=== PATIENT | female | born 1960 | race Caucasian/White ===

== ENCOUNTER → 2021-08-15 09:31 | Outpatient (CLI) | payer MEDICARE, SELFPAY ==
[2021-08-15 18:29] LABS: Basophils # 0.2 K/mm3 (0-0.2); Basophils % 1.8 % (0.1-2.0); Eosinophils # 0.2 K/mm3 (0.0-0.4); Hemoglobin 14.5 g/dL (12.2-16.2); Lymphocytes # 2.8 K/mm3 (0.7-4.5); Lymphocytes % 31.5 % (10-50); Mean Corpuscular HGB Conc 32.2 g/dL (31.8-35.4); Mean Corpuscular Volume 93.2 fl (81-99); Mean Platelet Volume 10.8 fl (7.4-10.4); Monocytes # 0.5 K/mm3 (0.1-1.0); Neutrophils # 5.2 K/mm3 (1.8-7.8); Neutrophils % 58.7 % (37.0-80.0); Platelet Count 363 K/mm3 (142-424); Red Blood Count 4.83 M/mm3 (4.20-5.40); Red Cell Distribution Width 13.6 % (11.5-17.5); White Blood Count 8.8 K/mm3 (4.8-10.8)
[2021-08-15 19:11] LABS: Anion Gap 10.4 mEq/L (5-15); Blood Urea Nitrogen 12 mg/dl (7-17); Calcium 8.9 mg/dl (8.4-10.2); Carbon Dioxide 26 mmol/L (22.0-30.0); Chloride 104 mmol/L (98-107); Estimated Glomerular Filt Rate 102 ml/min (>60); GFR (African American) 123 ML/MIN (>60); Glucose 92 mg/dl (74-100); HDL Cholesterol 53 mg/dl (40-60); Potassium 4.4 mmoL/L (3.5-5.1); Sodium 136 mmol/L (136-145); Triglycerides 292 mg/dl (30-150); VLDL Cholesterol 58 mg/dL (0-40)
[2021-08-15 19:22] LABS: Direct LDL Cholesterol 202.51 mg/dL (100-129)
[2021-08-15 19:32] LABS: Chol/HDL Ratio 6.3 (1-3.5); Cholesterol 332 mg/dl (140-200)
[2021-08-15 19:43] LABS: Thyroid Stimulating Hormone 2.79 uIU/mL (0.465-4.68)
== END ==
PROVIDERS: Visit Provider Emergency Medicine
DX: I10 Essential (primary) hypertension (principal); Z79.899 Other long term (current) drug therapy
CPT/HCPCS: 80048; 80061; 84439; 84443; 85025

== ENCOUNTER → 2021-08-21 12:34 | Outpatient (CLI) | payer MEDICARE, SELFPAY ==
--- NOTE | 2021-08-21 12:36 | CA_ITS ---
FINAL REPORT CLINICAL HISTORY: bruits, ringing in ears, HTN, smoker FINDINGS: An ultrasound of the carotid arteries was performed. Duplex Doppler evaluation with spectral analysis was performed. The peak systolic velocity of the right common carotid artery is 80 cm/s. The peak systolic velocity of the right internal carotid artery is 71 cm/s and end diastolic velocity 30 cm/s. A small amount of plaque is present. The right external carotid artery is patent. The right vertebral artery is patent with antegrade flow. ICA/CCA ratio: 1.3 The peak systolic velocity of the left common carotid artery is 73 cm/s. The peak systolic velocity of the left internal carotid artery is 95 cm/s and end diastolic velocity 35 cm/s. A small amount of plaque is present. The left external carotid artery is patent. The left vertebral artery is patent with antegrade flow. ICA/CCA ratio: 1.4 Less than 50% bilateral carotid stenoses. Bilateral patent vertebral arteries with antegrade flow. Reviewed, Interpreted and Dictated by Emmanuel Cheema MD Transcribed by Marco Fu Authenticated by Emmanuel Cheema MD on 08/21/2021 02:28:22 PM [facility]
== END ==
PROVIDERS: PCP Emergency Medicine; Visit Provider Emergency Medicine
DX: R09.89 Other specified symptoms and signs involving the circulatory and respiratory systems (principal)
CPT/HCPCS: 93880

== ENCOUNTER → 2023-03-13 06:09 | Outpatient (CLI) | payer MEDICARE, SELFPAY ==
--- NOTE | 2023-03-13 | CA_ITS ---
APPROVED REPORT Exam: Pharmacologic Technologist: Sridevi Coello, Ht: 5 ft 2 in Wt: 171 lbs BSA: 1.79 m2 HR: 69 bpm BP: 146/80 mmHg Rhythm: NSR Medical History Medications: Amlodipine,,,,, Lisinopril,,,,, Atorvastatin,,,,, Albuterol,,,,, Protonix,,,,, CetIRIZINE,,,,, Trelegy Ellipta,,,,, Stress Test Details Test: LEXISCAN Reason for pharmacologic stress test: physical limitation. HR Resting HR: 75 bpm Max Heart Rate (APMHR): 158 bpm Max HR Achieved: 118 bpm Target HR (85% APMHR): 134 bpm % of APMHR: 75 Recovery HR: 80 bpm BP Resting BP: 146.0/80.0 mmHg Max BP: 146.0/80.0 mmHg Recovery BP: 137.0/75.0 mmHg ECG Resting ECG: NSR, low voltage QRS, anterior T wave abnormalities Stress ECG: No significant ST changes Arrhythmia: None Clinical Exercise duration: 04:00 min Highest Stage Achieved: Exercise capacity: 1.0 METs Stress ECG Conclusion Symptoms: Nausea, mild SOA, mild head discomfort. No CP. Arrhythmias/Ectopy: Occasional PVC. ST-T Changes: No significant ST changes Conclusion: Baseline ECG demonstrates T wave abnormalities in anterior leads. No significant ST changes were noted following pharmacological stress testing. Myoview images reported separately. Test Summary REST . . . . . . . Resting REST 04:15 . . 75 . 146/ 80 . . Stage 1 01:00 . . 84 . . . . Stage 2 01:00 . . 86 . 125/ 71 . . Stage 3 01:00 . . 84 . 128/ 71 . . Stage 4 01:00 . . 82 . 121/ 76 . Stop exercise at 04:00 RECOVERY 01:00 . . 79 . 135/ 77 . . RECOVERY 02:00 . . 80 . 135/ 77 . . RECOVERY 03:00 . . 80 . 142/ 73 . . RECOVERY 03:16 . . 80 . 137/ 75 . . Electronically signed by : Olivia Bingham MD 03/23/2023 21:48:44
--- NOTE | 2023-03-13 06:12 | NM_ITS ---
APPROVED REPORT Exam: Nuclear Stress Test Indication: soa..fatigue..high bp..high cholesterol..family hx..tobacco use Patient Location: Outpatient Stress Tech: Sridevi Patel MS Tech:Luh Han ARRT RT(R)(N) Ht: 5 ft 2 in Wt: 170 lbs Bra Size: 34b HR: 75 bpm BP: 146/80 mmHg BSA: 1.78 m2 TID: 1.02 BMI: 31.0 History: soa..fatigue..high bp..high cholesterol..family hx..tobacco use Procedure: Patient received 0.4 mg of intravenous Lexiscan, resting heart rate 75 bpm, resting blood pressure 146/80 mmHg, with Lexiscan maximum heart rate achieved was 118 bpm which is 85 % of the maximum predicted heart rate and blood pressure was 146/80 mmHg. With Lexiscan, patient denied any complaint of chest pain. Cardiac Stress and Resting SPECT Images: Cardiac Stress and Resting SPECT images were obtained using technetium 99m Myoview 30.3 mCi stress and 10.99 mCi at rest. Resting and stress imaging in supine and prone positions demonstrate no evidence of fixed or reversible perfusion defects. Gated imaging demonstrates normal global and regional LV systolic function. LVEF is calculated at 74%. Conclusion: No evidence of fixed or reversible perfusion defects. Gated imaging demonstrates normal global and regional LV systolic function. LVEF is calculated at 74%. Electronically signed by : Olivia Bingham MD 03/23/2023 21:50:05
--- NOTE | 2023-03-13 08:03 | CA_ITS ---
APPROVED REPORT EXAM: Comprehensive 2D, Doppler, and color-flow Echocardiogram Explosive Man: Marlyn Beal RDCS Ht: 5 ft 2 in Wt: 171lbs BSA: 1.79 BP: 132/77 mmHg Indications: ABN EKG,SOA 2D Dimensions LVOT 1.72 cm (M/F) 1.5-2.5 M-Mode Dimensions RVDd 1.98 cm (0.9-2.6) LA Diam 3.56 cm (1.9-4.0) LVDd 4.96 cm (3.5-5.7) Ao Diam 2.89 cm (2.0-3.7) LVDs 3.69 cm (3.5-5.7) IVSd 0.84 cm (0.6-1.1) PWd 0.64 cm (0.6-1.1) EF (Teich) 50.20% FS 25.60% EDV (Teich) 116.10 mL ESV (Teich) 57.80 mL LV Diastology E Decel Time 193.00 (160-240 msec) E/A Ratio 1.0 MED E' 6.30 (< 7 cm/sec) E'/MED E' Ratio 12.46 (>14) LAT E' 7.80 (<10 cm/sec) E/LAT E' Ratio 10.06 (>14) Mitral Valve MV E Max Yan. 79.00 (40-130 cm/s) MV A Velocity 80.00 (40-130 cm/s) E/A Ratio 0.98 MV Decel. Time 193.00 (160-240 ms) MV PHT 57.00 ms Left Ventricle The left ventricle is normal size. The left ventricular systolic function is normal. The left ventricular ejection fraction is within the normal range. There is normal left ventricular wall thickness. There is normal LV segmental wall motion. The left ventricular diastolic function is normal. LVEF is 55%. Right Ventricle The right ventricle is normal size. The right ventricular systolic function is normal. Atria The left atrium size is normal. The right atrium size is normal. There is no Doppler evidence of interatrial shunt. Aortic Valve The aortic valve opens well. There is no aortic valvular stenosis. No aortic regurgitation is present. Mitral Valve The mitral valve is normal in structure. No evidence of mitral valve stenosis. There is no mitral valve regurgitation noted. Tricuspid Valve The tricuspid valve leaflets are thin and pliable. Trace tricuspid regurgitation. There is insufficient TR jet to estimate RVSP. Pulmonic Valve The pulmonary valve is normal in structure. Trace pulmonic regurgitation. Great Vessels The aortic root is normal in size. The ascending aorta is normal in size. IVC is normal in size and collapses >50% with inspiration. Pericardium There is no pericardial effusion. Other Information Study Quality: Fair Conclusion Normal biventricular systolic function. No significant valvular stenosis or regurgitation. Electronically signed by : Olivia Bingham MD 03/23/2023 21:23:39
== END ==
LOC: RAD 06:10
PROVIDERS: PCP Emergency Medicine; Visit Provider Nurse Practitioner
DX: R06.00 Dyspnea, unspecified (principal); I10 Essential (primary) hypertension; R10.9 Unspecified abdominal pain; R14.0 Abdominal distension (gaseous); R94.31 Abnormal electrocardiogram [ECG] [EKG]; Z82.49 Family history of ischemic heart disease and other diseases of the circulatory system; E66.9 Obesity, unspecified; Z68.31 Body mass index [BMI] 31.0-31.9, adult; Z72.0 Tobacco use
CPT/HCPCS: 78452; 93017; 93018; 93306; A9502; J2785

== ENCOUNTER → 2023-04-01 12:00 | Outpatient (CLI) | payer MEDICARE, SELFPAY | PROVIDERS: PCP Student in an Organized Health Care Education/Training Program; Visit Provider Student in an Organized Health Care Education/Training Program | DX: R05.9 Cough, unspecified (principal) | CPT/HCPCS: 87635 ==

== ENCOUNTER → 2023-04-17 08:19 | Outpatient (CLI) | payer MEDICARE, SELFPAY ==
[2023-04-17 20:08] LABS: Creatinine,Urine Random 27 mg/dL (Not Estab.)
== END ==
PROVIDERS: PCP Internal Medicine; Visit Provider Internal Medicine
DX: Z83.3 Family history of diabetes mellitus (principal); J44.9 Chronic obstructive pulmonary disease, unspecified; I10 Essential (primary) hypertension; Z72.0 Tobacco use
CPT/HCPCS: 82043; 82570

== ENCOUNTER 2023-09-26 11:46 | Outpatient (CLI) | payer MEDICARE, SELFPAY ==
[2023-09-26 18:23] LABS: Basophils # 0.2 K/mm3 (0-0.2); Basophils % 1.8 % (0.1-2.0); Eosinophils # 0.2 K/mm3 (0.0-0.4); Hemoglobin 14.1 g/dL (12.2-16.2); Lymphocytes # 3.8 K/mm3 (0.7-4.5); Lymphocytes % 34.4 % (10-50); Mean Corpuscular HGB Conc 32.7 g/dL (31.8-35.4); Mean Corpuscular Hemoglobin 30.9 pg (27.0-31.2); Mean Corpuscular Volume 94.5 fl (81-99); Monocytes # 0.6 K/mm3 (0.1-1.0); Monocytes % 5.3 % (1.7-9.3); Neutrophils # 6.2 K/mm3 (1.8-7.8); Neutrophils % 56.6 % (37.0-80.0); Platelet Count 303 K/mm3 (142-424); Red Blood Count 4.55 M/mm3 (4.20-5.40); Red Cell Distribution Width 13.5 % (11.5-17.5); White Blood Count 10.9 K/mm3 (4.8-10.8)
[2023-09-26 19:45] LABS: Alanine Aminotransferase 52 U/L (12-78); Albumin Level 4.1 g/dl (3.5-5.0); Albumin/Globulin Ratio 1.4 (1.1-1.8); Alkaline Phosphatase 182 U/L (38-126); Anion Gap 14.9 mEq/L (5-15); Aspartate Amino Transferase 36 U/L (14-36); Bilirubin,Total 0.4 mg/dl (0.2-1.3); Blood Urea Nitrogen 15 mg/dl (7-17); Calcium 9.5 mg/dl (8.4-10.2); Carbon Dioxide 25 mmol/L (22.0-30.0); Chloride 104 mmol/L (98-107); Chol/HDL Ratio 3.3 (1-3.5); Cholesterol 205 mg/dl (140-200); Estimated Glomerular Filt Rate 85 ml/min (>60); GFR (African American) 102 ML/MIN (>60); Globulin 2.9 g/dL (1.3-3.2); Glucose 108 mg/dl (74-100); HDL Cholesterol 62 mg/dl (40-60); Potassium 3.9 mmoL/L (3.5-5.1); Sodium 140 mmol/L (136-145); Triglycerides 130 mg/dl (30-150); VLDL Cholesterol 26 mg/dL (0-40)
[2023-09-26 19:56] LABS: Direct LDL Cholesterol 116.24 mg/dL (100-129)
[2023-09-26 20:17] LABS: Thyroid Stimulating Hormone 2.38 uIU/mL (0.465-4.68)
[2023-09-30 11:05] LABS: Gamma Glutamyl Transpeptidase 113 U/L (12-43)
== END 2023-09-26 23:59 | disposition home or self-care (01) ==
LOC: LAB.DROPOF 09-27 11:46
PROVIDERS: PCP Family Medicine; Visit Provider Family Medicine
DX: E78.5 Hyperlipidemia, unspecified (principal); J44.9 Chronic obstructive pulmonary disease, unspecified; K74.60 Unspecified cirrhosis of liver; Z79.899 Other long term (current) drug therapy
CPT/HCPCS: 80053; 80061; 82977; 84443; 85025

== ENCOUNTER 2023-10-27 07:11 | Outpatient (CLI) | payer MEDICARE, SELFPAY ==
--- NOTE | 2023-10-27 07:11 | US_ITS ---
FINAL REPORT CLINICAL HISTORY: hepatomegaly COMPARISON: None FINDINGS: Sonographic images of the right upper quadrant were obtained. The pancreas is unremarkable in appearance Hepatomegaly is present, with the liver measuring 19 cm in the craniocaudal dimension. There is diffuse fatty infiltration of the liver. There are 2 echogenic nonshadowing foci in the gallbladder, that may represent polyps versus tumefactive sludge. There is no evidence of biliary ductal dilatation.The common duct measures 3 mm. Limited images of the right kidney are unremarkable. IMPRESSION: Hepatomegaly, with diffuse fatty infiltration of the liver. 2 echogenic nonshadowing foci in the gallbladder, polyps versus tumefactive sludge. Reviewed, Interpreted and Dictated by Erik Egan III, MD Transcribed by Keira Jeffery Authenticated and [facility]
--- NOTE | 2023-10-27 08:08 | MM_ITS ---
PROCEDURE INFORMATION: Exam: Bilateral Screening 3D Mammography Exam date and time: 10/27/2023 8:13 AM Age: 63 years old Clinical indication: Screening examination TECHNIQUE: Imaging protocol: Bilateral Screening tomosynthesis and 2D mammography including computer-aided detection (CAD) when performed. COMPARISON: 1. MG Screening-Bilateral Mammography 10/22/2017 12:11 PM 2. MG MAMMO SCREENING DIGITAL BILAT 11/08/2014 5:47 PM FINDINGS: MAMMOGRAPHY: Breast composition: The breasts are heterogeneously dense, which may obscure small masses. Mass: None. Architectural distortion: None. Calcifications: No suspicious calcifications. Asymmetric density: None. Skin thickening: None. Axillary adenopathy: None. IMPRESSION: No mammographic evidence of malignancy. Annual screening is recommended unless otherwise clinically indicated. ASSESSMENT: BI-RADS Category 1: Negative
== END 2023-10-27 23:59 | disposition home or self-care (01) ==
LOC: RAD 07:11
PROVIDERS: PCP Family Medicine; Visit Provider Family Medicine
DX: Z12.31 Encounter for screening mammogram for malignant neoplasm of breast (principal); R16.0 Hepatomegaly, not elsewhere classified
CPT/HCPCS: 76705; 77063; 77067

== ENCOUNTER 2024-01-06 09:16 | Outpatient (CLI) | payer MEDICARE, SELFPAY ==
[2024-01-06 19:12] LABS: Alanine Aminotransferase 105 U/L (12-78); Albumin Level 3.4 g/dl (3.5-5.0); Albumin/Globulin Ratio 1.3 (1.1-1.8); Alkaline Phosphatase 215 U/L (38-126); Anion Gap 11.6 mEq/L (5-15); Aspartate Amino Transferase 66 U/L (14-36); Bilirubin,Total 0.3 mg/dl (0.2-1.3); Blood Urea Nitrogen 16 mg/dl (7-17); Calcium 8.9 mg/dl (8.4-10.2); Carbon Dioxide 27 mmol/L (22.0-30.0); Chloride 103 mmol/L (98-107); Cholesterol 210 mg/dl (140-200); Estimated Glomerular Filt Rate 101 ml/min (>60); GFR (African American) 122 ML/MIN (>60); Globulin 2.7 g/dL (1.3-3.2); HDL Cholesterol 53 mg/dl (40-60); Potassium 4.6 mmoL/L (3.5-5.1); Sodium 137 mmol/L (136-145); Total Protein,Serum 6.1 g/dl (6.3-8.2); Triglycerides 365 mg/dl (30-150); VLDL Cholesterol 73 mg/dL (0-40)
[2024-01-06 19:17] LABS: Glucose 417 mg/dl (74-100)
[2024-01-06 19:23] LABS: Direct LDL Cholesterol 101.81 mg/dL (100-129)
[2024-01-08 12:39] LABS: HBsAg Screen Negative (Negative); HCV Ab Non Reactive (Non Reactive); Hep A Ab, IGM Negative (Negative); Hep B Core Ab, IgM Negative (Negative)
== END 2024-01-06 23:59 | disposition home or self-care (01) ==
LOC: LAB.DROPOF 01-08 09:16
PROVIDERS: PCP Family Medicine; Visit Provider Family Medicine
DX: E78.5 Hyperlipidemia, unspecified (principal); E78.2 Mixed hyperlipidemia; I10 Essential (primary) hypertension; R79.89 Other specified abnormal findings of blood chemistry; Z11.59 Encounter for screening for other viral diseases; R16.0 Hepatomegaly, not elsewhere classified
CPT/HCPCS: 80053; 80061; 80074; 87522

== ENCOUNTER 2024-02-23 10:27 | Outpatient (CLI) | payer MEDICARE, SELFPAY ==
--- NOTE | 2024-02-23 10:29 | CT_ITS ---
PROCEDURE INFORMATION: Exam: CT Abdomen And Pelvis With Contrast Exam date and time: 02/23/2024 11:15 AM Age: 63 years old Clinical indication: Abdominal pain; Additional info: Llq and rlq pain, elevated lfts, polyps in gallbla TECHNIQUE: Imaging protocol: Computed tomography of the abdomen and pelvis with contrast. Radiation optimization: All CT scans at this facility use at least one of these dose optimization techniques: automated exposure control; mA and/or kV adjustment per patient size (includes targeted exams where dose is matched to clinical indication); or iterative reconstruction. Contrast material: ISOVUE; Contrast volume: 75 ml; Contrast route: IV; COMPARISON: US ABDOMEN LIMITED 10/27/2023 7:25 AM FINDINGS: Lungs: There is a 5 mm noncalcified nodule in the right lower lobe. For patients at low risk (minimal or absent history of smoking and of other known risk factors), no routine follow-up is indicated. For patients at high risk (history of smoking or of other known risk factors), consider optional CT Chest at 12 months. (Reference: Prateek) Liver: Hepatic steatosis. No focal liver lesion identified. Gallbladder and biliary ducts: Normal. No calcified stones. No ductal dilation. Pancreas: Normal. No ductal dilation. Spleen: Multiple old small calcified splenic granulomas. Adrenal glands: Normal. No mass. Kidneys and ureters: Normal. No hydronephrosis. Stomach and bowel: The small bowel loops are not thickened and are nondilated. There is colonic diverticulosis but no evidence of diverticulitis. Appendix: The appendix is not identified, but there are no inflammatory changes in its expected region. Intraperitoneal space: Unremarkable. No free air. No significant fluid collection. Vasculature: Unremarkable. No abdominal aortic aneurysm. Lymph nodes: Unremarkable. No enlarged lymph nodes. Urinary bladder: Unremarkable as visualized. Reproductive: Unremarkable as visualized. Bones/joints: Unremarkable. No acute fracture. Soft tissues: Unremarkable. IMPRESSION: 1. No CT evidence of acute intra-abdominal pathology. 2. Extensive sigmoid diverticulosis but no evidence of diverticulitis at this time. 3. Hepatic steatosis. 4. 5 mm noncalcified nodule in the right lower lobe with follow-up recommendations as above. REFERENCES: Prateek Rowland, et al. Guidelines for Management of Incidental Pulmonary Nodules Detected on CT Images: From the Fleischner Society 2017. Radiology. 2017;284(1):228-243.
[2024-02-23 11:00] LABS: Blood Urea Nitrogen 11 mg/dl (7-17); Estimated Glomerular Filt Rate 72 ml/min (>60); GFR (African American) 88 ML/MIN (>60)
[2024-02-23] MEDS: IOPAMIDOL-370 (76%);100ML BOTTLE 75 ML IV (11:48)
[2024-02-23] MEDS: SODIUM CHLORIDE 0.9% 10ML SYR (RAD ONLY) 10 ML IV (11:48)
== END 2024-02-23 23:59 | disposition home or self-care (01) ==
LOC: RAD 10:29
PROVIDERS: PCP Family Medicine; Visit Provider Nurse Practitioner Family
DX: K76.0 Fatty (change of) liver, not elsewhere classified (principal); R10.32 Left lower quadrant pain; R74.8 Abnormal levels of other serum enzymes; R14.0 Abdominal distension (gaseous)
CPT/HCPCS: 74177; 82565; 84520; Q9967

== ENCOUNTER 2024-03-23 14:53 | Outpatient (CLI) | payer MEDICARE, SELFPAY ==
--- NOTE | 2024-03-23 14:53 | CT_ITS ---
FINAL REPORT TECHNIQUE: Thin section axial images were obtained through the lungs using a low-dose technique per lung cancer screening protocol. Reconstruction images were obtained using the axial data. Exam was performed using dose reduction technique. CLINICAL HISTORY: 30 lung cancer screening current smoker 1ppd x 30 years COMPARISON: No prior FINDINGS: CTDLvol: 2.90 DLP: Nine 6.38 Current smoker 30 pack year history Lungs: 5 mm right lower lobe nodule seen on image 52. The lungs are otherwise clear. There is mild emphysema. Lymph nodes: No thoracic lymphadenopathy. Mediastinum: Heart size is normal. Pleura/pericardium: No pleural or pericardial effusion. Other: No acute abnormality in the upper abdomen. IMPRESSION: 5 mm right lower lobe nodule. Lung RADS: 2 Recommendation: 12-month follow-up low-dose chest CT Reviewed, Interpreted and Dictated by Krista Beckford MD Transcribed by Alethea Gray Authenticated and [facility]
== END 2024-03-23 23:59 | disposition home or self-care (01) ==
LOC: RAD 14:53
PROVIDERS: PCP Family Medicine; Visit Provider Family Medicine
DX: F17.210 Nicotine dependence, cigarettes, uncomplicated (principal)
CPT/HCPCS: 71271

== ENCOUNTER 2024-04-02 10:10 | Outpatient (CLI) | payer MEDICARE, SELFPAY ==
--- NOTE | 2024-04-02 10:52 | ECG_ITS ---
APPROVED REPORT Exam: Resting ECG HR:68 bpm ECG Measurements Heart Rate 68 AXES AK 165 P 41 QRSd 90 QRS 1 QT 415 T -8 QTc 433 Conclusion SINUS RHYTHM LOW QRS VOLTAGE IN PRECORDIAL LEADS [QRS DEFLECTION < 1.0 mV IN CHEST LEADS] ST DEVIATION AND MODERATE T-WAVE ABNORMALITY, CONSIDER ANTERIOR ISCHEMIA [-0.1+ mV T-WAVE IN V3/V4] ABNORMAL ECG UNCONFIRMED REPORT Electronically signed by : Jeramy Walls MD 04/02/2024 19:30:02
[2024-04-02 11:12] LABS: Chloride 109 mmol/L (98-107); Potassium 3.7 mmoL/L (3.5-5.1); Sodium 141 mmol/L (136-145)
[2024-04-02 11:15] LABS: Blood Urea Nitrogen 13 mg/dl (7-17); Estimated Glomerular Filt Rate 72 ml/min (>60); GFR (African American) 88 ML/MIN (>60)
[2024-04-02 11:16] LABS: Anion Gap 7.7 mEq/L (5-15); Carbon Dioxide 28 mmol/L (22.0-30.0); Glucose 78 mg/dl (74-100)
[2024-04-02 11:18] LABS: Basophils # 0.2 K/mm3 (0-0.2); Basophils % 1.7 % (0.1-2.0); Eosinophils # 0.2 K/mm3 (0.0-0.4); Eosinophils % 2.3 % (0.1-12.0); Hematocrit 40.2 % (37.0-47.0); Hemoglobin 13.5 g/dL (12.2-16.2); Lymphocytes # 3.4 K/mm3 (0.7-4.5); Lymphocytes % 38.2 % (10-50); Mean Corpuscular HGB Conc 33.6 g/dL (31.8-35.4); Mean Corpuscular Hemoglobin 29.6 pg (27.0-31.2); Mean Corpuscular Volume 88.1 fl (81-99); Mean Platelet Volume 9.5 fl (7.4-10.4); Monocytes # 0.5 K/mm3 (0.1-1.0); Monocytes % 6.1 % (1.7-9.3); Neutrophils # 4.6 K/mm3 (1.8-7.8); Neutrophils % 51.7 % (37.0-80.0); Platelet Count 283 K/mm3 (142-424); Red Blood Count 4.56 M/mm3 (4.20-5.40); Red Cell Distribution Width 13.5 % (11.5-17.5); White Blood Count 8.9 K/mm3 (4.8-10.8)
== END 2024-04-02 23:59 | disposition home or self-care (01) ==
LOC: PREOP 10:10
PROVIDERS: PCP Family Medicine; Visit Provider Surgery
DX: Z01.810 Encounter for preprocedural cardiovascular examination (principal); L98.9 Disorder of the skin and subcutaneous tissue, unspecified; R94.31 Abnormal electrocardiogram [ECG] [EKG]
CPT/HCPCS: 80048; 85025; 93005

== ENCOUNTER 2024-04-08 07:31 | Day surgery (SDC) | payer MEDICARE, SELFPAY ==
[2024-04-02 10:39] VITALS: BMI 32.0
[2024-04-08] VITALS (9 sets, daily range): BP systolic 96–148; BP diastolic 42–78; PULSE 70–80; RESP 16–18; TEMP 36.1–36.6; O2SAT 91–95; BMI 32.0
--- NOTE | 2024-04-08 08:00 | EXP.ANES.CKL ---
[facility] Disclaimer: The information contained in this section may have been updated after the patient was seen, as this information can be updated by other users. Medical History Skin lesion scalp Pulmonary nodule Diabetes mellitus, type II 01/06/24- Glucose 417mg/dl, A1c 10.4% 01/09/24 Diabetes Screening for viral disease Plantar wart Abnormal liver function tests Hepatomegaly Screening due Eczema of both external ears Hip pain, left Abnormal electrocardiogram [ECG] [EKG] Abdominal pain Abdominal distention Family history of CHF (congestive heart failure) GÓMEZ (obstructive sleep apnea) Patient states she is using her CPAP on a regular basis. Tobacco use Patient strongly encouraged to quit smoking. She states she will not quit at this time. Obesity (BMI 30-39.9) Hypertension COPD (chronic obstructive pulmonary disease) GERD (gastroesophageal reflux disease) Surgical History No significant past surgical history Family History Other Family history of cancer Family history of heart disease Social History Smoking Status: Current every day smoker tobacco type: cigarettes packs per day: 1 alcohol intake: never substance use type: denies use current occupational status: disabled Travel in the last 8 weeks: None [facility] Anesthesia Checklist Patient Identification Patient Identification: Arm Band and Verbal (Name & ) Structural Data Admitted From: Home Planned Operative Procedure/s: Excision of skin lesion on RT. lateral scalp Consent for Planned Operative Procedure(s) Verified: Yes Verified Documents: Surgical Consent and History and Physical NPO Status Verified Time NPO: 20:00 Chart Verification Results Verified: CBC, BMP and ECG Additional verifications Fingerstick Blood Glucose: 93 Patient : No Anesthesia Reactions: No Cardiovascular Assessment Heart Sounds: S1 & S2 Pulse Rhythm: Irregular Peripheral Edema: No Airway Assessment Mallampati Score:: Class II C-Spine Mobility Assessed: Yes (FROM demonstrated) TMJ Mobility Assessed: Yes Dentition: Dentures-good fit (Upper & lower in place. will remove prior to induction) Neurological Assessment Level of Consciousness: Awake, Alert, Appropriate and Follows Commands Hx Seizures: No Numbness or tingling in extremities: No Anesthesia Plan Anesthesia Risk discussed: Yes Anesthesia Plan: Verified ASA Class: III Anesthesia Type: General
[2024-04-08] MEDS: 0.9 % SODIUM CHLORIDE 1000ML 1,000 ML 25 ML IV (08:12)
[2024-04-08 09:07] LABS: POC Glucose,Bedside 93 (70-110)
[2024-04-08] MEDS: LIDOCAINE 1% 20ML MDV 20 ML (09:07)
[2024-04-08] MEDS: CLINDAMYCIN PHOSPHATE/D5W 900 MG/50 ML PIGGYBACK 100 MG IV (09:07)
--- NOTE | 2024-04-08 09:42 | EXP.OP.NOTE ---
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 General anesthesia with laryngeal mask airway was achieved. Her right lateral scalp was prepped and draped in a sterile fashion. After infiltration with local anesthetic an elliptical incision was made around the lesion. The deep subcutaneous tissue was sharply dissected. The lesion was excised in toto and passed off for pathologic evaluation. Electrocautery was utilized to achieve hemostasis. Skin was then reapproximated with interrupted 4-0 nylon. Dressings were applied and the patient was transferred to recovery in stable condition after removal of her laryngeal mask airway. Condition: stable Disposition: PACU Specimens:: Right lateral scalp skin lesion Complications:: No immediate
--- NOTE | 2024-04-08 10:01 | EXP.ANES.I ---
[facility] Anesthesia Record Part I Anesthesia Record I Intake, IV Amount: 900 Hydration: Adequate Estimated blood loss (mL): 2 Urine output (mL): 0 Blood Products used (#): none Blood Pressure: 113/67 SaO2: 91 Pulse Rate: 76 Airway Patency: Patent Respiratory Rate: 16 Temperature: 97.3 F Patient is:: Drowsy and Stable Stable to PACU at:: 09:50
--- NOTE | 2024-04-12 09:16 | P.PNANES_ITS ---
[facility] Anesthesia Record Part II Anesthesia Record Part II Discharge Time: 10:20 Destination: Surgical Day Care (OP Surgery) PACU nurse assessment reviewed?: Yes Patient Condition:: Good Anesthesia Complications:: None Swallowing reflex intact?: Yes Airway Patency: Patent Cyanosis?: No Blood Pressure: 108/60 SaO2: 95 Respiratory Rate: 16 Pulse Rate: 72 Temperature: 97 F Mental Status: Alert & Oriented Pain level:: 0 Nausea and/or vomitting:: None Intake, IV Amount: 0 Hydration: Adequate
[2024-04-12 09:17] VITALS: BP 108/60; PULSE 72; RESP 16; TEMP 36.1; O2SAT 95
== END 2024-04-08 11:07 | disposition home or self-care (01) ==
PROVIDERS: PCP Family Medicine; Visit Provider Surgery
PROC: (CPT 21011; principal; 2024-04-08 09:15)
DX: D23.4 Other benign neoplasm of skin of scalp and neck (principal); E11.8 Type 2 diabetes mellitus with unspecified complications; Z79.85 Long-term (current) use of injectable non-insulin antidiabetic drugs
CPT/HCPCS: 21011; 82962; 88305; 96374; J0736; J1100; J2250; J2405; J3010; J7030

== ENCOUNTER 2024-08-09 15:14 | Outpatient (CLI) | payer MEDICARE, SELFPAY ==
[2024-08-09 19:47] LABS: Chloride 108 mmol/L (98-107); Sodium 139 mmol/L (136-145)
[2024-08-09 19:48] LABS: Potassium 4.2 mmoL/L (3.5-5.1)
[2024-08-09 19:50] LABS: Alanine Aminotransferase 41 U/L (12-78); Albumin/Globulin Ratio 1.4 (1.1-1.8); Anion Gap 13.2 mEq/L (5-15); Aspartate Amino Transferase 33 U/L (14-36); Blood Urea Nitrogen 13 mg/dl (7-17); Carbon Dioxide 22 mmol/L (22.0-30.0); Estimated Glomerular Filt Rate 84 ml/min (>60); GFR (African American) 102 ML/MIN (>60); Globulin 2.9 g/dL (1.3-3.2); Total Protein,Serum 6.9 g/dl (6.3-8.2)
[2024-08-09 19:51] LABS: Alkaline Phosphatase 222 U/L (38-126); Bilirubin,Total 0.5 mg/dl (0.2-1.3); Calcium 9.1 mg/dl (8.4-10.2); Chol/HDL Ratio 3.3 (1-3.5); Cholesterol 166 mg/dl (140-200); Glucose 88 mg/dl (74-100); HDL Cholesterol 51 mg/dl (40-60); Triglycerides 112 mg/dl (30-150); VLDL Cholesterol 22 mg/dL (0-40)
[2024-08-09 20:02] LABS: Direct LDL Cholesterol 88.11 mg/dL (100-129)
[2024-08-09 20:16] LABS: Creatinine,Urine Random 89 mg/dL (Not Estab.)
[2024-08-09 21:51] LABS: Hemoglobin A1C 5.8 % (4.0-6.0)
[2024-08-09 22:24] LABS: Microalbumin > 1140.000 mg/L (0-16.7); Microalbumin/Creatinine Ratio 1280.8
== END 2024-08-09 23:59 | disposition home or self-care (01) ==
LOC: LAB.DROPOF 08-10 14:25
PROVIDERS: PCP Family Medicine; Visit Provider Family Medicine
DX: D23.9 Other benign neoplasm of skin, unspecified (principal); E78.2 Mixed hyperlipidemia; E11.9 Type 2 diabetes mellitus without complications
CPT/HCPCS: 80053; 80061; 82043; 82570; 83036

== ENCOUNTER 2024-11-08 14:40 | Outpatient (CLI) | payer MEDICARE, SELFPAY ==
--- OUTSIDE RECORDS SUMMARY | 2024-10-21 13:48 | XMS_ITS | Encounter Summary ---
Author Organization [facility] ([place], [place], [place], [place]) Address [address] [place] [address] Care Team Providers Care Electrician Apprentice [employer] Name Role Phone Erika Grijalva APRN Primary Care Provider [phone] Reason for Referral * CAT Scan (Routine) - Closed Specialty Diagnoses / Procedures Referred By Penny chopra Referred To Contact Radiology Diagnoses Nicotine dependence, cigarettes, uncomplicated Procedures CT LUNG SCREENING ANNUAL FOLLOWUP Bina Amato APRN [address] [place] [address] Phone: tel: fax: [facility] [address] [place] [address] Phone: tel: fax: Referral ID Status Reason Start Date Expiration Date Visits Re quested Visits Authorized [id number] Closed 10/20/2024 10/20/2025 1 1 Reason for Visit * CAT Scan (Routine) - Closed Specialty Diagnoses / Procedures Referred By Penny chopra Referred To Contact Radiology Diagnoses Nicotine dependence, cigarettes, uncomplicated Procedures CT LUNG SCREENING ANNUAL FOLLOWUP Bina Amato APRN [address] [place] [address] Phone: tel: fax: [facility] [address] [place] [address] Phone: tel: fax: Referral ID Status Reason Start Date Expiration Date Visits Re quested Visits Authorized [id number] Closed 10/20/2024 10/20/2025 1 1 Encounter Details Date Type Department Care Team (Latest Contact Info) Description 10/21/2024 1:48 PM EDT - 10/21/2024 11:59 PM EDT Hospital Encounter [facility] - [address] [place] [address] Bina Amato, STEAMBLASTER [address] [place] [address] Current every day smoker Discharge Disposition: Home or Self Care Social History Tobacco Use Types Packs/Day Years Used Date Smoking Tobacco: Former Cigarettes 1 48.2 S tarted: 08/1976 Smokeless Tobacco: Never Tobacco Cessation:Counseling Given: Not Answered Comments:Varying patient information. LD Quit 11/2016. 2 ppd at most. Started smoking at age 16. On/ off smoker. Current smoker 0.5 ppd as of 10/21/2024 Alcohol Use Standard Drinks/Week Comments Not Currently 0 (1 standard drink = 0.6 oz pur e alcohol) Family and Community Support Answer Kervin e Recorded Help with Day to Day Activities Not on file 05/16/2023 Feeling Lonely or Isolated Not on file 05/16 Educational Attainment Answer Date William rded Speak language other than Lao at home Not on file 05/16/2023 Want help with school or training Not on file 05/16/2023 Substance Use Answer Date Recorded Used prescription meds for non-medical reasons N ot on file 05/16/2023 Used illegal drugs past 12 months Not on file 05/16/2023 Comments Unknown Sex and Gender Information Value Date Recorded Sex Assigned at Not on file Legal Sex Female 4:24 PM CDT Gender Identity Not on file Sexual Orientation Not on file documented as of this encounter Medications at Time of Discharge Accu-Chek Guide test strips strp Use as directed. 05/26/2024 albuterol 2.5 mg /3 mL (0.083 %) nebulizer solution Inhale 3 mLs (2.5 mg total) by nebulization every 6 (six) hours as needed for shortness of breath or wheezing. 360 mL 5 06/22/2024 albuterol 90 mcg/actuation inhaler Inhale 2 puffs by mouth every 6 (six) hours as needed for shortness of breath. 1 Inhaler 6 06/22/2024 amLODIPine (NORVASC) 5 MG tablet Take 1 tablet (5 mg total) by mouth daily. atorvastatin (LIPITOR) 40 MG tablet Take 1 tablet (40 mg total) by mouth daily. 04/03/2024 cetirizine (ZyrTEC) 10 MG tablet Take 1 tablet (10 mg total) by mouth daily. 10/08/2022 fluticasone-umec lidin-vilanter (Trelegy Ellipta) 200-62.5-25 mcg dsdv Inhale 1 puff by mouth daily. 1 each 6 06/22/2024 lansoprazole (PREVACID) 30 MG capsule Take 1 capsule (30 mg total) by mouth daily. 05/05/2024 lisinopriL (PRINIVIL,ZESTRI L) 30 MG tablet Take 1 tablet (30 mg total) by mouth daily. meloxicam (MOBIC) 7.5 MG tablet Take 1 tablet (7.5 mg total) by mouth daily. 09/27/2023 Mounjaro 2.5 mg/0.5 mL pnij Inject 0.5 mLs under the skin once a week. 05/31/2024 pantoprazole (PROTONIX) 40 MG tablet Take 1 tablet (40 mg total) by mouth daily. 09/30/2022 triamcinolone (KENALOG) 0.5 % ointment Apply topically. 03/19/2024 documented as of this encounter Plan of Treatment Upcoming Encounters Date Type Department Care Team (Late st Contact Info) Description 11/15/2024 1:45 PM EDT Office Visit [facility] - [address] [place] [id number] Keila Henry MD [address] [place] [address] documented as of this encounter Procedures Procedure Name Priority Date/Time Associated Diagnosis Comments CT LUNG SCREENING ANNUAL FOLLOWUP Routine 10/21/2024 2:10 PM EDT Current every day smoker documented in this encounter Results * CT LUNG SCREENING ANNUAL FOLLOWUP (10/21/2024 2:10 PM EDT) Anatomical Region Laterality Modality Chest, Lung Computed Tomogra phy (CT) 10/22/2024 7:45 AM EDT Impressions 10/22/2024 10:43 AM EDT Stable right lower lobe nodule, consider benign. Lung RADS category 2. Recommend follow-up low-dose CT in 12 months. Images reviewed, interpreted, and dictated by Dr. Meliton Velasco. Transcribed by Ashley Hoang Narrative 10/22/2024 10:[address] SCAN OF THE CHEST 10/21/2024 1:54 PM HISTORY: Screening CT. Former smoker who quit 6.7 years prior with a 82 pack-year smoking history. COMPARISON: October 20, 2023 PROCEDURE: Axial images were obtained from the lung apex to the mid abdomen by computed tomography. Low-dose protocol was utilized. The CTDI vol is 2.90 mGy. The DLP is 90.64 mGy*cm. This study was performed with techniques to keep radiation doses as low as reasonably achievable, (ALARA). Individualized dose reduction techniques using automated exposure control or adjustment of mA and/or kV according to the patient size were employed. FINDINGS: CHEST: There is no axillary adenopathy. There is no hilar or mediastinal adenopathy. Heart size is normal. There is no pericardial or pleural effusion. There is a 4 mm nodule in the right lower lobe posteriorly on image 85 series 2. This is stable to mildly improved. Bibasilar scarring is unchanged. There is mild emphysematous disease. Limited images of the upper abdomen are unremarkable. us Bina Amato STEAMBLASTER IMG CT ORDERABLES Final R esult documented in this encounter Visit Diagnoses Diagnosis Current every day smoker documented in this encounter Care Teams Electrician Apprentice [employer] Relationship Specialty Start Date End Date Erika Grijalva, STEAMBLASTER PCP - General Nurse Practitioner 03/29/22 documented as of this encounter
[2024-11-08 19:31] LABS: Albumin Level 4.6 g/dl (3.5-5.0); Chloride 100 mmol/L (98-107); Potassium 4.5 mmoL/L (3.5-5.1); Sodium 139 mmol/L (136-145)
[2024-11-08 19:34] LABS: Alanine Aminotransferase 44 U/L (12-78); Albumin/Globulin Ratio 1.6 (1.1-1.8); Alkaline Phosphatase 185 U/L (38-126); Anion Gap 15.5 mEq/L (5-15); Aspartate Amino Transferase 44 U/L (14-36); Bilirubin,Total 0.4 mg/dl (0.2-1.3); Blood Urea Nitrogen 12 mg/dl (7-17); Carbon Dioxide 28 mmol/L (22.0-30.0); Cholesterol 173 mg/dl (140-200); Creatinine,Serum 0.80 mg/dl (0.52-1.04); Estimated Glomerular Filt Rate 72 ml/min (>60); GFR (African American) 87 ML/MIN (>60); Globulin 2.9 g/dL (1.3-3.2); Total Protein,Serum 7.5 g/dl (6.3-8.2); Triglycerides 150 mg/dl (30-150)
[2024-11-08 19:35] LABS: Calcium 9.1 mg/dl (8.4-10.2); Glucose 81 mg/dl (74-100); HDL Cholesterol 52 mg/dl (40-60)
[2024-11-09 00:01] LABS: Hemoglobin A1C 6.8 % (4.0-6.0)
--- OUTSIDE RECORDS SUMMARY | 2024-11-09 09:51 | XMS_ITS | Clinical Summary ---
Author Organization Healthcare Address [address] [place] [address] Care Team Providers Care Machinery Repair Maintenance Supervisor Name Role Phone ChesterPhil villar Primary Care Provider [phone] Social History Tobacco Use Types Packs/Day Years Used Date Smoking Tobacco: Never Assessed Comments Unknown Sex and Gender Information Value Date Recorded Sex Assigned at Not on file Legal Sex Female 8:46 PM EDT Gender Identity Not on file Sexual Orientation Not on file Plan of Treatment Upcoming Encounters Date Type Department Care Team (Late st Contact Info) Description 02/18/2025 9:00 AM EDT Office Visit [facility] [address] [place] [address] Sommer Spear, SERVICES REP [address] [address] Health Maintenance Due Date Last Done Comments [facility]-Depression Screening 1960 [facility]-HIV Screening 1960 [facility]-Hepatitis C Screening 1960 [facility]-Medicare Annual Wellness (AWV) 1960 [facility]-/Child/Adol SDOH Screenings 1960 [facility]- SDOH Screenings 1978 [facility]-Adult SDOH Screenings 1978 [facility]-DTaP,Tdap,and Td Vaccines (1 - Tdap) 08/10/1979 [facility]-Pap Smear 02/13/2002 02/13/1999, 08/26, 1993, Additional history exists [facility]-Cervical Cancer Screening 02/14/2004 [facility]-HPV/Cotest 02/14/2004 02/13/1999, 08/26, 1993, Additional history exists CT Colonography 2005 Colonoscopy 2005 FIT-DNA 2005 FIT 2005 FOBT 2005 Sigmoidoscopy 2005 [facility]-Colorectal Cancer Screening 2005 [facility]-Breast Cancer Screening 2010 [facility]-Zoster Vaccines (1 of 2) 2010 [id number] Vaccine (3 - season) 2023 11/07/2020, 10/10/2020 [facility]-Influenza Vaccine (#1) 2024 03/29/2014 [facility]-RSV Vaccine: 60+ Years or (1 - 1-dose 75+ series) 08/10/2035 [facility]-Pneumococcal Vaccine: 50+ Years Completed 02/06/2024, 06/10/2013 HPV Vaccines Aged Out No longer eligi ble based on patient's age to complete this topic [facility]-HIB Vaccines Aged Out No longer e ligible based on patient's age to complete this topic [facility]-Hepatitis A Vaccines Aged Out No longer eligible based on patient's age to complete this topic [facility]-IPV Vaccines Aged Out No longer e ligible based on patient's age to complete this topic [facility]-Rotavirus Vaccines Aged Out No lo nger eligible based on patient's age to complete this topic Procedures Procedure Name Priority Date/Time Associated Diagnosis Comments CYTO DATA CONVERSION Routine 02/13/1999 12:00 AM EDT from Last 3 Months or Most Recently Relevant to Health Maintenance Results * Cytology (02/13/1999 12:00 AM EDT) Specimen from vagina (specimen) 02/13/1999 02/14/1999 Narrative SUNQUEST - 03/13/1999 12:00 AM EST [facility] MR #: [id number] [facility] [address] [place], [place] [address] 1960 (Age: 38) FW Collect Date: 02/13/1999 00:00 Receipt Date: 02/14/1999 00:00 Page 1 DEPARTMENT OF PATHOLOGY AND LABORATORY MEDICINE CYTOPATHOLOGY REPORT Email: [email or web address] * Converted Case * This report may not match the original report format ATTENDING MD/Practitioner: Mary Jane May MD Service: COMPUTER TECHNICAL SUPPORT SPECIALIST Location: Reported: 03/13/1999 00:00 Collected: 02/13/1999 00:00 INTERPRETATION VAGINAL WITHIN NORMAL LIMITS. SATISFACTORY FOR INTERPRETATION. Cervical/vaginal cytology is a screening test with a recognized false negative rate. New technologies may decrease but will not eliminate false negative results. Regular (generally annual) cytology screening is recommended to minimize false negative results. Electronically Signed Out By Jael Hale ANNABEL Velásquez (ASC) No Signature Required Cervical cytology is a screening test primarily for squamous cancers and precursors and has associated false negative and positive results. New technologies such as liquid based sampling may decrease but will not eliminate all false negative results. Regular screening and follow-up of unexplained clinical signs and symptoms are recommended to minimize false negative results. Please see the ASCCP website (www.asccp.org) for followup recommendations. If HPV testing was requested, correlation with the results is suggested (please call Microbiology at [phone] for results). CLINICAL INFORMATION: Menstrual History: {Not Provided} Date of Last Menstrual Period: {Not Provided} SPECIMEN DESCRIPTION: A: VAGINAL, PAP ICD: F: {Not Entered} SNOMED CODES: 1; [id number] In cases where a pathologist has signed out the report, the service has been rendered in part by a resident. The signing pathologist has performed and is responsible for the reported pathologic evaluation. us Historical Provider MD LAB PATHOLOGY ORDERABLES Final Result SUNQUEST from Last 3 Months or Most Recently Relevant to Health Maintenance Insurance [employer]M MEDICARE HUMANA MEDICARE Care Teams Machinery Repair Maintenance Supervisor Relationship Specialty Start Date End Date Phil Wu DO [address] [place] [address] PCP - General 04/30/23
--- OUTSIDE RECORDS SUMMARY | 2024-11-09 09:51 | XMS_ITS | Encounter Summary ---
Author Organization [employer] ([place], [place], [place], [place]) Address [address] [place] [address] Care Team Providers Care Streets And Buildings Decorator Name Role Phone Erika Grijalva APRN Primary Care Provider [phone] Encounter Details Date Type Department Care Team (Late st Contact Info) Description 07/03/2021 Transcribed Document [facility] Family Medicine [address] [place] [address] ProviderNayan MD [address] [place] [address] Social History Tobacco Use Types Packs/Day Years Used Date Smoking Tobacco: Never Assessed Family and Community Support Answer Kervin e Recorded Help with Day to Day Activities Not on file 05/16/2023 Feeling Lonely or Isolated Not on file 05/16 Educational Attainment Answer Date William rded Speak language other than Sudanese at home Not on file 05/16/2023 Want [...] on file documented as of this encounter Miscellaneous Notes * Cerner Conversion Note - Historical ProviderMD - 07/03/2021 11:59 PM FILM HISTORIAN Spirometry: Decreased FEV1 to FVC ratio FEV1 48% and FVC 59% Of note flow volume loop postbronchodilator showed obstructive pattern Bronchodilator response is not significant Lung volumes: Normal total lung capacity 93% Increased RV to TLC ratio 61 % Diffusion lung capacity for carbon monoxide: Decreased DLCO 60% Impression: Severe obstructive defect with reduced gas transfer suggestive of chronic obstructive pulmonary disease/emphysema Increased RV to TLC ratio suggests air trapping. Mild restrictive defect Gold stage III COPD 6-minute walk test: Evidence of hypoxia. Recommend supplemental oxygen documented in this encounter Plan of Treatment Upcoming Encounters Date Type Department Care Team (Late st Contact Info) Description 11/15/2024 1:45 PM EDT Office Visit [facility] Pulmonology - [address] [place] [address] Keila Henry MD [address] [place] [address] documented as of this encounter Visit Diagnoses Not on filedocumented in this encounter Care Teams Streets And Buildings Decorator Relationship Specialty Start Date End Date Erika Grijalva APRN PCP - General Nurse Practitioner 03/29/22 documented as of this encounter
--- OUTSIDE RECORDS SUMMARY | 2024-11-09 09:51 | XMS_ITS | Encounter Summary ---
Author Organization [employer] ([place], [place], [place], [place]) Address [address] [place] [address] Care Team Providers Care Ambulance Dispatcher Name Role Phone Erika Grijalva APRN Primary Care Provider [phone]- [phone] Reason for Visit * Reason Onset Date Comments Medication Refill 01/01/2024 Encounter Details Date Type Department Care Team (Late st Contact Info) Description 01/01/2024 Refill [facility] Pulmonology - [address] [place] [address] Bina Amato APRN [address] [place] [address] Social History Tobacco Use Types Packs/Day Years Used Date Smoking Tobacco: Former Cigarettes 2 41.1 0 08/1976 - 09/17/2017 Smokeless Tobacco: Never Comments:Varying patient inf ormation. LD Quit 11/2016. 2 ppd at most. Started smoking at age 16. On/ off smoker. Alcohol Use Standard Drinks/Week Comments Not Currently 0 (1 standard drink = 0.6 oz pur e alcohol) Family and Community Support Answer Kervin e Recorded Help with Day to Day Activities Not on file 05/16/2023 Feeling Lonely or Isolated Not on file 05/16 Educational Attainment Answer Date William rded Speak language other than Botswanan at home Not on file 05/16/2023 Want [...] as of this encounter Miscellaneous Notes * Telephone Encounter - Sam Montenegro - 01/01/2024 2:39 PM EDT Called Ms. Duran to see how she felt since last seen in office on December 21. She stated she completed the Prednisone and Doxycyline and felt better. I explained that our office received a refill request on the antibiotic and was concerned she may not be improving. Patient stated she is a much better,not congested, no fever or new symptoms. Her symptoms currently are mild in nature, and she stated she could take some over the counter medication for relief, if needed. I asked her to call the office if she didn't continue to improve, or with any questions. Patient verbalized agreeing. documented in this encounter Plan of Treatment Upcoming Encounters Date Type Department Care Team (Late st Contact Info) Description 11/15/2024 1:45 PM EDT Office Visit [facility] Pulmonology - [address] [facility] [address] [place] [id number] Keila Henry MD [address] [place] [address] documented as of this encounter Visit Diagnoses Not on filedocumented in this encounter Care Teams Ambulance Dispatcher Relationship Specialty Start Date End Date Erika Grijalva APRN PCP - General Nurse Practitioner 03/29/22 documented as of this encounter
--- OUTSIDE RECORDS SUMMARY | 2024-11-09 09:51 | XMS_ITS | Referral Summary ---
Author Organization [employer] ([place], [place], [place], [place]) Address [address] [place] [address] Care Team Providers Care Pharmacy Operations Specialist Name Role Phone Erika Grijalva APRN Primary Care Provider [phone]- [phone] Encounters Date Type Department Care Team Description 10/21/2024 1:48 PM EDT - 10/21/2024 11:59 PM EDT Hospital En[facility] [address] [place] [address] Bina Amato APRN Current every day smoker Discharge Disposition: Home or Self Care from Last 3 Months Allergies Active Allergy Reactions Criticality Noted Date Comments Penicillins Other (See Comments) Medium 03/08/2022 Medications amLODIPine (NORVASC) 5 MG tablet Take 1 tablet (5 mg total) by mouth daily. Active lisinopriL (PRINIVIL,ZESTR IL) 30 MG tablet Take 1 tablet (30 mg total) by mouth daily. Active cetirizine (ZyrTEC) 10 MG tablet Take 1 tablet (10 mg total) by mouth daily. 3 Active pantoprazole (PROTONIX) 40 MG tablet Take 1 tablet (40 mg total) by mouth daily. 3 Active meloxicam (MOBIC) 7.5 MG tablet Take 1 tablet (7.5 mg total) by mouth daily. 4 Active Accu-Chek Guide test strips strp Use as directed. 5 Active lansoprazole (PREVACID) 30 MG capsule Take 1 capsule (30 mg total) by mouth daily. 5 Active Mounjaro 2.5 mg/0.5 mL pnij Inject 0.5 mLs under the skin once a week. 5 Active atorvastatin (LIPITOR) 40 MG tablet Take 1 tablet (40 mg total) by mouth daily. 4 Active triamcinolone (KENALOG) 0.5 % ointment Apply topically. 4 Active albuterol 2.5 mg /3 mL (0.083 %) nebulizer solution Inhale 3 mLs (2.5 mg total) by nebulization every 6 (six) hours as needed for shortness of breath or wheezing. 360 mL 5 5 Active albuterol 90 mcg/actuation inhaler Inhale 2 puffs by mouth every 6 (six) hours as needed for shortness of breath. 1 Inhaler 6 5 Active fluticasone-ume clidin-vilanter (Trelegy Ellipta) 200-62.5-25 mcg dsdv Inhale 1 puff by mouth daily. 1 each 6 5 Active Active Problems Problem Noted Date Diagnosed Date GERD (gastroesophageal reflux disease) 4 10/31/2023 Obesity (BMI 30-39.9) 10/31/2023 10/31/2023 Former smoker 10/18/2022 Chronic respiratory failure 10/18/2022 Edema 10/18/2022 Hyperlipidemia 10/15/2022 Hypertension 10/15/2022 Status post abdominal hysterectomy 10/15/2022 COPD (chronic obstructive pulmonary disease) Tobacco use 01/10/2021 Encounter for general adult medical examination without abnormal findings 01/10/2021 Lung nodule 01/10/2021 GÓMEZ (obstructive sleep apnea) 01/10/2021 History of obstructive sleep apnea 01/10/2021 Shortness of breath 06/03/2019 Social History Tobacco Use Types Packs/Day Years [...] Date William rded Speak language other than Djiboutian at home Not on file 05/16/2023 Want [...] on file Sexual Orientation Not on file Last Filed Vital Signs Vital Sign Reading Time Taken Comments Blood Pressure 124/76 06/22/2024 1:21 PM EST Pulse 84 06/22/2024 1:21 PM EST Temperature 36.5 C (97.7 F) 06/22/2024 1:21 PM EST Respiratory Rate 16 12/22/2023 1:09 PM EDT Oxygen Saturation 93% 06/22/2024 1:21 PM EST Inhaled Oxygen Concentration - - Weight 75.8 kg (167 lb) 06/22/2024 1:21 PM EST Height 157.5 cm (5' 2 ) 06/22/2024 1:21 PM EST Body Mass Index 30.54 06/22/2024 1:21 PM EST Plan of Treatment Upcoming Encounters Date Type Department Care Team (Late st Contact Info) Description 11/15/2024 1:45 PM EDT Office Visit [facility] Pulmonology - [address] [place] [address] Keila Henry MD [address] [place] [address] Procedures Procedure Name Priority Date/Time Associated Diagnosis Comments CT LUNG SCREENING ANNUAL FOLLOWUP Routine 10/21/2024 2:10 PM EDT Current every day smoker from Last 3 Months Results * CT LUNG SCREENING ANNUAL FOLLOWUP [...] upper abdomen are unremarkable. us Bina Amato MAITRE D' IMG CT ORDERABLES Final R esult from Last [address] [place] [address] HUMANA MEDICARE HMO Care Teams Pharmacy Operations Specialist Relationship Specialty Start Date End Date Erika Grijalva, MAGGIE PCP - General Nurse Practitioner 03/29/22
--- OUTSIDE RECORDS SUMMARY | 2024-11-09 09:51 | XMS_ITS | Clinical Summary ---
Author Organization [employer] ([place], [place], [place], [place]) Address [address] [place] [address] Care Team Providers Care Professor Computer Science Name Role Phone Erika Grijalva APRN Primary Care Provider [phone]- [phone] Allergies Active Allergy Reactions Criticality Noted Date [...] sleep apnea 01/10/2021 Shortness of breath 06/03/2019 Encounters Date Type Department Care Team Description 10/21/2024 1:48 PM EDT - 10/21/2024 11:59 PM EDT [facility] [address] [place] [address] Bina Amato APRN Current every day smoker Discharge Disposition: Home or Self Care from Last 3 Months Family History Medical History Relation Name Comments Cancer Maternal Grandmother Hypertension Mother Stroke Mother Relation Name Status Comments Maternal Grandmother Mother Social History Tobacco Use Types Packs/Day Years [...] Date William rded Speak language other than British at home Not on file 05/16/2023 Want [...] Office Visit [facility] Pulmonology - [facility] [address] [place] [address] Keila Henry MD [address] [place] [address] Health Maintenance Due Date Last Done Comments CT Colonography 1960 Colonoscopy 1960 Colorectal Cancer Screening 1960 FOBT/FIT 1960 Fit-DNA (Cologuard) 1960 Sigmoidoscopy 1960 Depression Screening (12+) 1972 HIV Screening 08/10/1975 Hepatitis C Screening 1978 DTAP/TDAP/TD VACCINES (1 - Tdap) 08/10/1979 Breast Cancer Screening 2000 Lipid Panel 2005 Shingles Vaccine (Zoster) (1 of 2) 2010 Pneumococcal 50+ years (2 of 2 - PCV) 06/10/2014 06/10/2013 Respiratory Syncytial Virus (RSV) Adult or (1 - Risk 60-74 years 1-dose series) 2020 COVID-19 VACCINE (3 - 2023-2 5 season) 2023 11/07/2020, 10/10/2020 Medicare Initial AWV [id number] 06/26/2024 Influenza Vaccine (#1) 2024 Tobacco Cessation Counseling and Screening (12+) 06/22/2025 06/22/2024 Lung cancer screening 10/21/2025 10/21/2024 , 10/20/2023, 10/18/2022, Additional history exists Procedures Procedure Name Priority Date/Time Associated Diagnosis [...] images of the upper abdomen are unremarkable. Bina Amato CHARTER BOAT OPERATOR IMG CT ORDERABLES Final R esult from Last 3 Months [place] [id number] Care Teams Professor Computer Science Relationship Specialty Start Date End Date Erika Grijalva APRN PCP - General Nurse Practitioner 03/29/22
--- OUTSIDE RECORDS SUMMARY | 2024-11-09 10:51 | XMS_ITS | CCD ---
Author Organization Unknown Care Team Providers Care Disc Pad Knockout Worker Name Role Phone Unavailable Primary Care Provider Unavailabl e Unavailable Chronic Care Management Unavaila ble Summary Purpose DataExchange Insurance Providers Payer name Policy type / Coverage type Covered republican ID Effective Begin Date Effective End Date [facility] [id number] Unknown Unknown Family History Family History data not found Medication Administered No Medication Administered data Reason For Visit No Reason For Visit data Medical Equipment No Medical Equipment data Advance Directives No Advance Directive data
--- OUTSIDE RECORDS SUMMARY | 2024-11-09 10:51 | XMS_ITS | CCD ---
Author Organization Unknown Care Team Providers Care Research Fellow Name Role Phone Unavailable Primary Care Provider Unavailabl e Unavailable Chronic Care Management Unavaila ble Summary Purpose DataExchange Insurance Providers Payer name Policy type / Coverage type Covered alliance party ID Effective Begin Date Effective End Date [facility] [id number] Unknown Unknown Family History Family History data not found Medication Administered No Medication Administered data Reason For Visit No Reason For Visit data Medical Equipment No Medical Equipment data Advance Directives No Advance Directive data
== END 2024-11-08 23:59 | disposition home or self-care (01) ==
LOC: LAB.DROPOF 11-09 09:48
PROVIDERS: PCP Family Medicine; Visit Provider Family Medicine
DX: E11.9 Type 2 diabetes mellitus without complications (principal)
CPT/HCPCS: 80053; 80061; 83036